=== PATIENT | male | born 1940 | race Caucasian/White ===

== ENCOUNTER 2016-12-18 05:32 | Inpatient (IN) | payer MEDICARE ==
--- NOTE | 2016-12-17 08:37 | HP ---
DATE OF CLINIC: 12/12/16 ERUM CARRERA : 1940 PLANNED PROCEDURE: Left Total Shoulder Arthroplasty vs. Reverse Shoulder Arthroplasty and Biceps Tenodesis DATE OF SURGERY: December 18, 2016 SURGEON: Bennett Palomo M.D. HISTORY OF PRESENT ILLNESS Erum Carrera is a 76 year old male. * Medication list reviewed with patient allergy list reviewed with patient. * Has not tried NSAIDS * Has not tried Physical Therapy * Has not tried Injections The patient is a 76-year-old male who is RHD who is an established patient of the practice who has a PMH for hyperglycemia, coronary artery disease, and systolic CHF who I am evaluating for his left shoulder osteoarthritis who recently had a CTA and would like to move forward with surgical planning. The patient has tried aa steroid injection and he had little to no improvement on this left side. He would like to discuss with me opportunities including surgery and a left shoulder replacement. The patient is well-known to Dr. Johnson and an established patient of the practice. The patient plans on stopping his plavix 5 days prior to his surgery. Due to his allergies or sensitivies, we will plan on using Dilaudid for pain control post-op (oxycodone sensitivity) and Clinda for antitbiotics (PCN produces hives). He did have a complication after his right shoulder surgery. The patient had a right shoulder replacement in [place] by a [facility] doctor. He describes having a heart attack after this surgery. He had an angioplasty on the 15 of October and thinks that everything is ok to move ahead with surgery. I have not spoken to his cardiology and do not have these angioplasty results. He states that he is having increased pain of the left shoulder. He rates his left shoulder pain as probably a 6/10. He states that he has stiffness and limited motion on this side and would like to discuss possible options with me. He is currently on Plavix and he plans to stop taking it prior to the surgery. He has had a coronary artery stenting. He states that his right shoulder arthroplasty was quite prolonged and he actually had a cardiac event requiring catheterization shortly thereafter. After discussion and review of treatment plans, both nonoperative and surgical, he has elected to proceed with surgery and presents today preoperatively. PMH: THe patient had right shoulder surgery by Dr. Cosme, an orthopedic surgeon in [place], performed an arthroscopic right shoulder rotator cuff repair on 01/19/2014. Unfortunately, within five months, the patient had failure of this and persistent pain. He opted to proceed with a right reverse shoulder arthroplasty. This right shoulder reverse shoulder arthroplasty was performed on 06/24/2014. In reviewing the operative note, the patient had an Exactech Equinoxe implant. CURRENT MEDICATION * Allopurinol 300 MG Tablet 1 once a day 0 days, 0 refills * Atorvastatin Calcium 40 MG Tablet 1 once a day 0 days, 0 refills * Clopidogrel Bisulfate 75 MG Tablet 1 once a day 0 days, 0 refills * Folic Acid 1 MG Tablet once a day 0 days, 0 refills * Furosemide 40 MG Tablet once a day 0 days, 0 refills * HM Naproxen Sodium 220 MG Capsule 1 once a day 0 days, 0 refills * Isosorbide Mononitrate ER 120 MG Tablet Extended Release 24 Hour once a day 0 days, 0 refills * Losartan Potassium 25 MG Tablet 1 once a day 0 days, 0 refills * Metoprolol Tartrate 100 MG Tablet 1 twice a day 0 days, 0 refills * NitroQuick 0.4 mg Tablet as needed 0 days, 0 refills * Omeprazole 20 MG Capsule Delayed Release 1 once a day 0 days, 0 refills * Potassium Citrate ER 10 MEQ (1080 MG) Tablet Extended Release three times a day 0 days, 0 refills PAST MEDICAL/SURGICAL HISTORY Reported: Medical: Cardiac problems CAD requiring multiple angioplasties and stent placements. Cholesterol problems. Arthritis, cancer skin, Reported numbness, Reported tingling, cardiac history 7 stents, history of Arthritis, Depression, Gout, Hypertension, Vertigo, and Asthma. Surgical / Procedural: Surgical / procedural history Back sx 2005 disc Heart [id number] 5 stents, replacement of a shoulder joint Right shoulder 2013, of a knee Right knee replaced 05/08/10 by , Cardiac surgery 7 stents-most recent one was done 10/2015, and Back Surgery 2004. Total Right Knee Replacement 05/08/[address] johnson. SOCIAL HISTORY Behavioral: Caffeine use. Not a current smoker and not chewing tobacco. Quit smoking. Smoking status: Former smoker. Alcohol: No consumption of alcohol and not using alcohol. Drug Use: Not using drugs. Work: Occupation Back [employer]. ALLERGIES * Oxycodone * Penicillins Reaction: Skin Rashes/Hives FAMILY HISTORY Father ill Heart disease,hbp Mother ill cancer, hbp, heart disease REVIEW OF SYSTEMS Systemic: No fever and no recent weight change. Cardiovascular: No chest pain or discomfort and no palpitations. Pulmonary: No cough and no wheezing. Gastrointestinal: No nausea, no vomiting, no abdominal pain, and no diarrhea. Hematologic: Easy bleeding (no blood clots, hx of plavix use). Neurological: No motor disturbances and no sensory disturbances. Skin: No skin lesions and no rash. PHYSICAL FINDINGS * Vitals taken 12/12/2016 02:06 pm BP-Sitting R 156/94 mmHg 100 - 120/60 - 80 BP Cuff Size Regular Pulse Rate-Sitting 70 bpm 50 - 100 Pulse Rhythm Regular Temp-Oral 96.7 F 96 - 101 Height 66.5 in 64 - 74 Weight 243 lbs 121 - 205 Body Mass Index 38.6 kg/m2 Body Surface Area 2.18 m2 Pain Level 0 General Appearance: * Well developed. * In no acute distress. Eyes: General/bilateral: Extraocular Movements: * Normal. Lungs: * Clear to auscultation. * No wheezing was heard. * No rales/crackles were heard. Cardiovascular: Heart Rate And Rhythm: * Heart rate was normal. * Heart rhythm regular. Abdomen: Palpation: * Abdominal non-tender. Neurological: * Oriented to time, place, and person. I examined the patient's right and left shoulders. His right shoulder incision is well-healed. He has had a previous well-healed right antecubital fossa distal biceps repair incision and he has chronic right pinky numbness. PHYSICAL FINDINGS RIGHT EXTREMITY Shoulder General Appearance: The patient has an anterior deltopectoral incision and well-healed arthroscopic incision. He has no bruising, no swelling, no gross deformity. Patient describes non-specific pain when turning the car wheel with the right hand AROM Forward Flexion: 120 degrees ABD: 80 degrees IR: Highest posterior anatomy reached with thumb: Greater troch Painful Arc of motion: Not painful on examination today PROM Forward Flexion: 130 degrees ABD: 100 degrees ER (0): 30 degrees Strength (0-5/5) Deltoid: 5/5 Triceps: 5/5 Biceps: 5/5 EPL,Finger Flexors,Finger Extensors,Wrist Flexors, Wrist Extensors,Intrinsics,Adapted Physical Education Aide: 5/5 Other No signs of instability present Atrophy/Asymmetry: Normal Medial Scapular Tenderness: Negative Trapezius Pain: Negative Vascular Exam Radial Pulse: 2+ Sensation Gross sensation to light touch in the distribution of Median, Ulnar and Radial nerves present. Decreased sensation to light touch on the right pinky finger. PHYSICAL FINDINGS LEFT EXTREMITY Shoulder General Appearance: no scars, no bruising, no swelling, no gross deformity AROM Forward Flexion: 140 degrees (crepitus and painful for the patient) ABD: 110 degrees IR: Highest posterior anatomy reached with thumb: Greater troch Painful Arc of motion: painful active and passive motion of the left shoulder PROM Forward Flexion: 150 degrees ABD: 110 degrees ER (0): 10 degrees Strength (0-5/5) Deltoid: 5/5 Triceps: 5/5 Biceps: 5/5 EPL,Finger Flexors,Finger Extensors,Wrist Flexors, Wrist Extensors,Intrinsics,Adapted Physical Education Aide: 5/5 Rotator cuff Supraspinatus: 5/5 (negative empty can test) Infraspinatus: 5/5 (no pain with resisted external rotation) Subscapularis: 5/5 (negative belly press test) Rotator Cuff Exam Neer's Sign: POSITIVE Hawkin's Sign: POSITIVE Superior Escape: Negative Biceps Exam Bicipital Groove Tenderness: POSITIVE Muscle Deformity (Toni): Not present AC Exam AC Tenderness: Not tender AC Deformity: Negative Instability Generalized Laxity(thumb to forearm,hyperextension of elbows and knees, hypermobility of multiple joints): Not present, no signs of instability present Other Medial Scapular Tenderness: Negative Trapezius Pain: Negative Vascular Exam Radial Pulse: 2+ Sensation Gross sensation to light touch in the distribution of Median, Ulnar, Axillary, and Radial nerves present IMAGING CXR--Pending 10.05.2016--CTA of the left shoulder: demonstrates severe osteoarthritis of the left shoulder. The patient has an intact rotator cuff. The patient had central and some posterior glenoid wear but I think a pegged component could fit without a problem. I think an anatomic TSA would be possible but a RSA would be available for backup. X-rays of the patient's right shoulder, performed on 08/13/2016, demonstrate a cemented humeral stem and glenosphere. On the AP view, the patient has no signs of glenoid notching. We did not actually have any previous x-rays. On the axillary view, it does appear that the patient's central, or more proximal screw, extends one to two centimeters past the edge of the bone, however this does not appear to be causing any difficulty or problem. The glenosphere is somewhat antiverted. No other signs of loosening, failure or any other abnormalities are appreciated on these x-rays. Three views of the right hand were also performed. These x-rays demonstrate some DIP and IP osteoarthritis with subchondral sclerosis of the first CMC joint, consistent with basal joint osteoarthritis. Three view of the left shoulder demonstrate primary osteoarthritis. There is severe wear, especially on the inferior aspect of the glenoid. On the axillary view, the patient has concentric wear. I do not see any signs of a high-riding humeral head. Most likely the patient's rotator cuff is intact. We did not have any advanced imaging which would help us with this. ASSESSMENT Bennett Palomo MD made the following assessments * Osteoarthritis of shoulder -left * Complete tear of right rotator cuff tendon --s/p right shoulder RSA (Exactech) in 2013 PLAN Bennett Palomo MD ordered the following therapy * Shoulder arthroplasty -left, TSA vs. RSA, biceps tenodesis THERAPY * Patient fall risk screen negative. * Patient eligible for fall risk assessment. * Patient received fall risk assessment. SURGICAL CONSENT We have discussed surgical options including left total shoulder arthroplasty vs. reverse shoulder arthroplasty with biceps tenodesis and nonoperative management. I told the patient that I cannot guarantee that he could have a different medical issue post-op. He states that he understands this and would like to move ahead with surgery. Due to his plavix use, he is at higher risk for a wound problem, hematoma and infection. I told him that I may need to place a drain if necessary. I told him that a RSA would only but used if I was concerned for the integrity of his rotator cuff. We then spent some time discussing the pros and cons of surgery and I attempted to answer his questions about the surgery and the post-op recovery. I then reviewed with the patient my patient education powerpoint presentation total shoulder replacement refers to the resurfacing of the ball (humeral) side of the joint with a metal prosthesis that has a cylindrical joint surface and a stem used to fix it on the inside of the arm bone (humerus) and a plastic socket fixed to the glenoid part of the shoulder blade (scapula). This procedure is the standard approach to the management of arthritis of the shoulder joint. Because it resurfaces both the ball and the socket sides of the joint, it provides the most assured approach to restoring comfort and function to the shoulder. We can perform this shoulder surgery by operating through the delto-pectoral interval through an incision in the anterior aspect of the shoulder. Commonly, we performed a tenodesis of the long head of the biceps and a release (and repair) of the subscapularis tendon from the humerus. The long head of the biceps is sutured to the pectoral major tendon, and the subscapularis tendon is repaired back tot he bone at the conclusion of the surgery. After a release of the subscapularis, the capsule, which is usually tight and contracted, limiting motion of the shoulder, is released. The arthritic part of the ball is removed with care to preserve the rotator cuff. The bone spurs are removed from around the humerus to avoid unwanted contact with the scapula. We then shape the bone of the socket area (glenoid) to receive the polyethylene glenoid prosthesis. This is fixed in place with a self-locking mechanism coupled with a small amount of bone cement (polymethylmethacrylate). The stem of the metal humeral component is then press-fit into the canal inside the humerus using the patient's own bone. The subscapularis is then repaired to the humerus using sutures. The [id number] of the shoulder is then evaluated and stability is then examined. The incision is then washed and closed. Pendulum exercises will be taught to the patient the day after surgery. Patients are usually discharged from the hospital on the second day after surgery, as long as they are comfortable on oral pain medication have met our goals for their [id number], and are able to walk with good balance and can care for their daily needs. In the past, there has been a major concern about wear of the glenoid socket component or about its loosening. While these concerns remain to a degree, it appears that our current methods of socket preparation and current prosthesis designs have substantially reduced these risks. Shoulder replacement surgery usually results in a substantial improvement in the comfort and function of an arthritic shoulder, but the results cannot be expected to match the condition of a normal joint. The patient was counseled in detail regarding the diagnosis, treatment options available, prognosis of each treatment option and the potential risks and complications. The risks of surgery include, but are not limited to, anesthetic , neurovascular complications, pulmonary embolism, deep vein thrombosis, wound dehiscence, failure of any or all of the discussed procedures, infection of the joint or surrounding soft tissue, need for revision surgery, chronic pain, limitations in activities of daily living, inability to return to work, and loss of normal range of motion or functional use of the extremity. There is the possibility of failure over time that may require additional operative or nonoperative treatment. The patient acknowledged that there are a number of perioperative risks not mentioned here and would still like to proceed. The patient is aware of and understands these risks, and wishes to proceed with the proposed surgical procedure and other procedures as indicated at the time of surgery. The patient has seen his cognos report developer and PCP for a preoperative medical risk assessment. The preoperative instructions were reviewed with the patient and all questions were answered. CARE TEAM Matt Lenz MD Internal Medicine Emmanuel Talbot MD Cardiovascular Disease
[2016-12-18] MEDS ORDERED: CLINDAMYCIN 600 MG PREMIX 50 ML IV PRN (05:45)
[2016-12-18] MEDS ORDERED: LACTATED RINGERS 1,000 ML ONE (05:52)
[2016-12-18] MEDS ORDERED: IV START KIT ONE (05:52)
[2016-12-18] MEDS ORDERED: LIDOCAINE 2% (PRES FREE) 5 ML VIAL ONE (06:20)
[2016-12-18] MEDS ORDERED: ROPIVACAINE 0.5% 30 ML VIAL ONE (06:20)
[2016-12-18] MEDS ORDERED: PROPOFOL 20 ML IV ONE (06:20)
[2016-12-18] MEDS ORDERED: DEXAMETHASONE SOD PHOS 4 MG/1 ML VIAL ONE (06:20)
[2016-12-18] MEDS ORDERED: ROCURONIUM BROMIDE 10 MG/ML DOSE IV ONE (06:20)
[2016-12-18] MEDS ORDERED: ONDANSETRON 4 MG/2ML 2 ML VIAL ONE (06:20)
[2016-12-18] MEDS ORDERED: MIDAZOLAM HCL 5 MG/5 ML VIAL ONE (06:20)
[2016-12-18] MEDS ORDERED: FENTANYL 5 ML ONE (06:20)
[2016-12-18] MEDS ORDERED: NERVE BLOCK PROCEDURAL TRAY 1 EACH ONE (06:30)
[2016-12-18] MEDS ORDERED: CLINDAMYCIN 600 MG PREMIX 50 ML IV ONE (06:51)
[2016-12-18] MEDS ORDERED: EPINEPHRINE 1 MG/ML 1ML AMP ONE (07:01)
[2016-12-18] MEDS ORDERED: SODIUM CHLORIDE 0.9% 100 ML ONE (07:02)
[2016-12-18] MEDS ORDERED: METHYLENE BLUE 1% 1ML VIAL ONE (07:02)
[2016-12-18] MEDS ORDERED: ONDANSETRON 4 MG/2ML 2 ML VIAL IV PRN ×2 (08:58→12:25)
[2016-12-18] MEDS ORDERED: ON-Q PUMP/ROPIVACAINE 0.2% 400 ML in PREMIX BAG 1 EACH NB PRN (08:58)
[2016-12-18] MEDS ORDERED: HYDROMORPHONE HCL 1 MG/ML SYRINGE IV PRN (08:58)
[2016-12-18] MEDS ORDERED: PROMETHAZINE HCL 25 MG/ML VIAL IM PRN (08:58)
[2016-12-18] MEDS ORDERED: FENTANYL 100 MCG/2 ML VIAL IV PRN (08:58)
[2016-12-18] MEDS ORDERED: LACTATED RINGERS 1,000 ML IV SCH ×2 (09:00→12:25)
[2016-12-18] MEDS ORDERED: FENTANYL 100 MCG/2 ML VIAL ONE (10:22)
--- NOTE | 2016-12-18 11:18 | PCMBPN ---
Brief Post Op Note: Date of Procedure: 12/18/16 Preoperative Diagnosis: 1. left shoulder osteoarthritis and biceps tendonitis Postoperative Diagnosis: 1. [Same] Procedure: left total shoulder arthroplasty and biceps tenodesis Surgeon: Bennett Palomo MD Assist: George Ely PA-C, CFA Anesthesia: GETA, left intrascalene nerve block and catheter for post-op pain relief Findings: as expected, pt had an intact rotator cuff. DJO [place] TSA implanted. Size 10mm humeral stem. Cemented size 50 glenoid and a std neck and neutral head (50mm) Condition: extubated, stable vitals, transferred to pacu Complications: None IV Fluids: 1200 mLs of LR Urine Output: 150 mLs Estimated Blood Loss: 250mLs Tourniquet Time: [N/A] Specimens: [N/A] Implants: DJO Implants Drains: [N/A] Plan: NWB on the LUE. SLing at all times. Wainwright for pain control and morphine. Clinda for 24 hours post-op. Will resume Plavix on POD#2
--- NOTE | 2016-12-18 11:22 | RAD ---
SHOULDER-LEFT 1 VIEW COMPARISON: Left shoulder 4 views, 08/13/2016 HISTORY: Intraoperative radiograph and fluoroscopy for left shoulder arthroplasty. Fluoroscopy time 8.3 seconds FINDINGS: Views: Left shoulder AP proximal and distal. Bones: Normal Joints: Satisfactory position of the left total shoulder arthroplasty. Soft tissues: Normal IMPRESSION: Satisfactory position of the left total shoulder arthroplasty.
[2016-12-18] MEDS ORDERED: METOPROLOL TARTRATE 1 MG/ML 5ML VIAL ONE (11:25)
[2016-12-18] MEDS ORDERED: ON-Q PUMP/ROPIVACAINE 0.2% 450 ML ONE (11:38)
[2016-12-18] MEDS ORDERED: BISACODYL 10 MG SUP PR PRN (12:25)
[2016-12-18] MEDS ORDERED: TRAMADOL HCL 50 MG TABLET PO PRN (12:25)
[2016-12-18] MEDS ORDERED: ACETAMINOPHEN 500 MG TABLET PO PRN (12:25)
[2016-12-18] MEDS ORDERED: DIPHENHYDRAMINE HCL 50 MG/1 ML VIAL IV PRN (12:25)
[2016-12-18] MEDS ORDERED: MORPHINE SULFATE 2 MG/ML SYRINGE IV PRN (12:25)
[2016-12-18] MEDS ORDERED: MAGNESIUM HYDROXIDE 30 ML UDCUP PO PRN (12:25)
[2016-12-18] MEDS ORDERED: MORPHINE SULFATE 4 MG/ML SYRINGE IV PRN (12:33)
--- NOTE | 2016-12-18 13:17 | RAD ---
SHOULDER-LEFT 2 OR MORE VIEWS 12/18/2016 at 12:13 COMPARISON: Left shoulder 2 views, 12/18/2016 at 08:22 HISTORY: Immediately postop left shoulder arthroplasty. FINDINGS: Views: Left shoulder AP and internal rotation Bones: Normal Joints: Satisfactory positioning of the left shoulder total arthroplasty. Soft tissues: Normal IMPRESSION: Satisfactory appearance of the left shoulder total arthroplasty.
[2016-12-18] MEDS ORDERED: PUMP TUBING ONE (14:27)
[2016-12-18] MEDS: CLINDAMYCIN 600 MG PREMIX 600 MG in Premix (D5W) 50 ml 1 EACH IV SCH (16:04)
[2016-12-18] MEDS ORDERED: NITROGLYCERIN 0.4 MG/TAB.SUBL BOT SL PRN (18:12)
--- NOTE | 2016-12-18 19:15 | CONS ---
ERUM CARRERA [id number] : 1940 DATE OF ADMISSION: December 18, 2016 DATE OF CONSULTATION: December 18, 2016 CONSULTATION REQUESTED BY: Bennett Palomo M.D. REASON FOR CONSULTATION: Perioperative medical management. PRIMARY CARE PROVIDER: Matt Lenz M.D. CHIEF COMPLAINT: Left shoulder pain. HISTORY ON ADMISSION: Mr. Carrera is a 76-year-old with longstanding osteoarthritis. He had a previous right shoulder arthoplasty at [facility] in 2013 and suffered a myocardial infarction at the time of that surgery. He has recovered from that and had cardiac clearance prior to this surgery. Consulted with Dr. Palomo and presented today for planned left total shoulder arthroplasty. He had surgery with general endotracheal anesthesia. An interscalene nerve block and catheter were left in place for postoperative pain management. Estimated blood loss was 250 mL. Fluids given during surgery 1200 mL. He is seen on the medical/surgical floor on the evening following surgery. He is asleep but rouses easily. Reports dyspnea which is at his chronic baseline. No significant pain, no nausea, itching or chest pain. PREOPERATIVE REVIEW OF SYSTEMS: No recent upper respiratory symptoms, chronic dyspnea. No recent chest pain or palpitations. No gastrointestinal symptoms, no genitourinary symptoms. PAST MEDICAL HISTORY: 1. Osteoarthritis. 2. Coronary artery disease. He has had at least one myocardial infarction and two coronary catheterizations with a total of seven stents placed. 3. Chronic systolic heart failure followed by Dr. Talbot. 4. Hypertension. 5. Dyslipidemia. 6. Gout. 7. Gastroesophageal reflux disease. 8. Obstructive sleep apnea with use of CPAP. 9. Obesity with a body mass index of 39.0 and presumed obesity hypoventilation syndrome contributing to obstructive sleep apnea. PAST SURGICAL HISTORY: 1. Back surgery in 2004. 2. Right total knee arthroplasty by Dr. Johnson in 2009. 3. Right total shoulder arthroplasty at [facility] in 2013. 4. Coronary catheterizations with a total of seven stents. 5. Left total shoulder surgery today. ALLERGIES: 1. HE REPORTS HISTORY OF HIVES FROM PENICILLIN. 2. HE DOES NOT REPORT TROUBLE WITH OXYCODONE BUT THAT IS NOTED IN HIS CHART. MEDICATIONS PRIOR TO ADMISSION: 1. Allopurinol 300 mg orally daily. 2. Atorvastatin 80 mg orally nightly. 3. Clopidogrel 75 mg orally daily. He did hold that for a week preceding surgery. 4. Zetia 10 mg orally nightly. 5. Folic acid 1 mg orally nightly. 6. Furosemide 80 mg in the morning and 40 mg at noon. 7. Potassium chloride 20 mEq in the morning and 10 mEq at noon. 8. Omeprazole 20 mg orally daily. 9. Nitroglycerin 0.4 mg sublingual every five minutes as needed. 10. Metoprolol tartrate 100 mg orally twice daily. 11. Isosorbide mononitrate 120 mg orally each morning. HABITS: He is a former smoker of about 20 years but quit in 1974. No alcohol or drug use. SOCIAL HISTORY: He is a retired interstate bus driver. Lives in [place] with his . He is a [employer]. FAMILY HISTORY: Positive for hypertension and heart disease in his father, mother and brother. PHYSICAL EXAMINATION: GENERAL: This is a pleasant, obese, elderly gentleman in no acute distress. VITAL SIGNS: Temperature is 97.3 degrees Fahrenheit, pulse 101, blood pressure 154/76, respiratory rate 18, oxygen saturation 98% on 2 L of oxygen by nasal cannula. HEENT: Pupils are reactive. Left is a little oblong from cataract surgery. Extraocular muscles are intact. Oropharynx is moist. Upper denture plate in place. LUNGS: Decreased breath sounds particularly at the left base but no wheezes or rhonchi. HEART: Regular, no murmur appreciated. ABDOMEN: Obese, soft, nontender. Normal bowel tones. No organomegaly. EXTREMITIES: He does have trace edema in the ankles and feet bilaterally. Moderate dorsalis pedis pulses. No cyanosis or clubbing. Left shoulder is immobilized and in a cooling blanket. NEUROLOGIC: He is alert and oriented with no focal deficits. PREOPERATIVE LABORATORY STUDIES: Done on December 10, 2016, white blood cell count 8.3, hemoglobin and hematocrit 13.2 and 37.9, platelets 235. INR 0.98, PTT 24.7. Sodium 141, potassium 4.3, chloride 104, CO2 25, BUN 28, creatinine 1.4, glucose 132. He may have some chronic kidney disease given that creatinine and BUN. Urinalysis was normal. Nasal screening swab was positive for methicillin sensitive, negative for methicillin resistant Staphylococcus aureus. ASSESSMENT: Mr. Carrera is a 76-year-old status post left total shoulder reverse arthroplasty. He has underlying coronary artery disease, chronic systolic congestive heart failure, hypertension, dyslipidemia, gout, gastroesophageal reflux disease, and obstructive sleep apnea with use of CPAP. RECOMMENDATIONS: 1. Postoperative care per orthopedics. 2. Resume clopidogrel on the morning following surgery as well as daily aspirin 325 mg and mechanical means for venous thromboembolism prophylaxis. 3. Resume home medications especially metoprolol tonight. 4. Replace omeprazole with pantoprazole. 5. Do not administer routine fluids overnight so as not to put him into acute heart failure. 6. Home CPAP use should be continued. Thank you, Dr. Palomo, for this consultation. The hospitalist service will follow.
[2016-12-18] MEDS: ATORVASTATIN CALCIUM 40 MG TABLET PO SCH (21:30)
[2016-12-18] MEDS: ALLOPURINOL 300 MG TABLET PO SCH (21:30)
[2016-12-18] MEDS: EZETIMIBE 10 MG TABLET PO SCH (21:30)
[2016-12-18] MEDS: METOPROLOL TARTRATE 100 MG TABLET PO SCH (21:30)
[2016-12-18] MEDS: PANTOPRAZOLE 40 MG TABLET DR PO SCH (21:31)
[2016-12-18] MEDS: DOCUSATE SODIUM 100 MG CAPSULE PO SCH (21:31)
[2016-12-18] MEDS: FOLIC ACID 1 MG TABLET PO SCH (21:32)
[2016-12-19] MEDS: CLINDAMYCIN 600 MG PREMIX 600 MG in Premix (D5W) 50 ml 1 EACH IV SCH (00:30)
[2016-12-19] MEDS ORDERED: LACTATED RINGERS 0 ML ONE (06:00)
[2016-12-19] MEDS ORDERED: IV START KIT ONE (06:01)
[2016-12-19 06:54] LABS: HEMATOCRIT 32.2 % (32.0-52.0); HEMOGLOBIN 11.1 gm/l (14.0-18.0); MEAN CELL VOLUME 89.9 fl (80.0-94.0); MEAN CORPUSCULAR HGB CONC 34.5 g/dl (33.0-37.0); RED CELL DISTRIBUTION WIDTH 13.5 % (11.5-14.5)
--- NOTE | 2016-12-19 08:14 | PDOC43 ---
- Subjective Subjective: Reports Pain Tolerable (Pt doing ok at this time. Decker still in place. No chest pain.), Denies Chest Pain, Denies Shortness of Breath, Denies Nausea, Denies Vomiting, Denies Fever - Objective Vital Signs Temperature 98.0 F 12/19/16 08:02 Pulse Rate 74 12/19/16 08:02 Respiratory Rate 18 12/19/16 08:02 Blood Pressure 134/74 12/19/16 08:02 O2 Saturation by Pulse Oximetry 96 12/19/16 08:02 Oxygen Delivery Method Nasal Cannula Oxygen Flow Rate 3 Laboratory 12/19/16 06:35 12/19/16 06:35 RBC 3.58 L Active Medication Orders Category Date Time Status Acetaminophen [Tylenol] Med 12/18/16 12:25 Active 500 - 1,000 mg PO Q6H PRN Allopurinol [Zyloprim] Med 12/18/16 21:00 Active 300 mg PO BEDTIME Aspirin (Enteric Coated) [Ecotrin] Med 12/19/16 09:00 Active 325 mg PO DAILY Atorvastatin Calcium [Lipitor] Med 12/18/16 21:00 Active 80 mg PO BEDTIME Bisacodyl [Dulcolax] Med 12/18/16 12:25 Active 10 mg ID DAILY PRN Clopidogrel Bisulfate [Plavix] Med 12/19/16 09:00 Active 75 mg PO DAILY Diphenhydramine HCl [Benadryl] Med 12/18/16 12:25 Active 25 - 50 mg IV Q6H PRN Docusate Sodium [Colace] Med 12/18/16 21:00 Active 100 mg PO BID Ezetimibe [Zetia] Med 12/18/16 21:00 Active 10 mg PO BEDTIME Folic Acid Med 12/18/16 21:00 Active 1 mg PO BEDTIME Furosemide [Lasix] Med 12/19/16 12:00 Active 40 mg PO DAILY@1200 Furosemide [Lasix] Med 12/19/16 09:00 Active 80 mg PO DAILY Hydrocodone Bit/Acetaminophen [[place] 7.5/325] Med 12/18/16 12:25 Active 0.5 - 2 tab PO Q4H PRN Isosorbide Mononitrate [Imdur] Med 12/19/16 09:00 Active 120 mg PO QAM Magnesium Hydroxide [Milk of Magnesia] Med 12/18/16 12:25 Active 30 ml PO DAILY PRN Metoprolol Tartrate [Lopressor] Med 12/18/16 21:00 Active 100 mg PO BID Morphine Sulfate Med 12/18/16 12:25 Active 2 - 4 mg IV Q4H PRN Morphine Sulfate Med 12/18/16 12:33 Active 2 - 4 mg IV Q4H PRN Nitroglycerin [Nitrostat] Med 12/18/16 18:12 Active 0.4 mg SL Q5M PRN On-Q Pump/Ropivacaine 0.2% 400 ml Med 12/18/16 08:58 Active Premix Bag [Premix Fluid] 1 each NB Q50H Ondansetron 4 mg/2ml Vial [Zofran] Med 12/18/16 12:25 Active 4 - 6 mg IV Q6H PRN Pantoprazole Sodium [Protonix] Med 12/18/16 18:30 Active 40 mg PO DAILY Potassium Chloride [K-Dur] Med 12/19/16 12:00 Active 10 meq PO DAILY@1200 Potassium Chloride [K-Dur] Med 12/19/16 09:00 Active 20 meq PO QAM Sodium Chloride 0.9% Flush [Normal Saline 10ml Flush] Med 12/18/16 12:25 Active 10 - 50 ml IV PRN PRN Sodium Chloride 0.9% Flush [Normal Saline 10ml Flush] Med 12/18/16 17:00 Active 10 ml IV Q8HR Tramadol HCl [Ultram] Med 12/18/16 12:25 Active 50 mg PO TID PRN Intake and Output 12/17/16 12/18/16 12/19/16 23:59 23:59 23:59 Intake Total 2633 2032 Output Total 750 950 Balance 1883 1082 General: Afebrile - Left Upper Extremity Incision: Dressing Clean/Dry/Intact Motor: Extensor Pollicis Longus: 4/5, Finger Flexors: 4/5, Finger Extensors: 4/5 , Wrist Flexors: 4/5, Wrist Extensors: 4/5, Intrinsics: 4/5 Gross Sensation to Light Touch: Present: Median Nerve, Ulnar Nerve, Radial Nerve Capillary Refill: < 3 Seconds - Problems (1) Primary osteoarthritis, left shoulder Status: Acute - Disposition POD#1 s/p left TSA Appreciate medicine following patient with me Would recommend restarting Plavix on POD#2. Currently on ASA for DVT prophylaxis. Decker cather to be removed today NWB on the LUE. Clinda x 24 hours post-op PT and OT to work with the patient today. D/C depends on pain control. Will start weaning nerve block later today.
[2016-12-19] MEDS: CLOPIDOGREL BISULFATE 75 MG TABLET PO SCH (08:27)
[2016-12-19] MEDS: ISOSORBIDE MONONITRATE 60 MG TAB.SR PO SCH (08:27)
[2016-12-19] MEDS: PANTOPRAZOLE 40 MG TABLET DR PO SCH (08:28)
[2016-12-19] MEDS: DOCUSATE SODIUM 100 MG CAPSULE PO SCH ×2 (08:28→20:24)
[2016-12-19] MEDS: POTASSIUM CHLORIDE 20 MEQ TAB.PRT.SR PO SCH (08:28)
[2016-12-19] MEDS: METOPROLOL TARTRATE 100 MG TABLET PO SCH ×2 (08:28→20:16)
[2016-12-19] MEDS: HYDROcodone/ACETAM 7.5/325MG TABLET PO PRN ×3 (08:28→16:38)
[2016-12-19] MEDS: FUROSEMIDE 40 MG TABLET PO SCH (08:28)
[2016-12-19 08:37] LABS: CALCIUM 8.9 mg/dL (8.6-10.3)
[2016-12-19] MEDS ORDERED: ASPIRIN (ENTERIC COATED) 325 MG TABLET.EC PO SCH (09:00)
[2016-12-19 09:48] VITALS: BMI 38.8
--- NOTE | 2016-12-19 11:42 | PDOC43 ---
- Subjective Chief Complaint: Left shoulder pain Subjective: Reports Pain Tolerable, Reports Tolerating Diet Well, Reports Chest Pain (breifly this am similar to usual angina pattern and resolved without NTG) , Denies Shortness of Breath, Denies Fever - Objective Vital Signs Temperature 98.0 F 12/19/16 08:02 Pulse Rate 74 12/19/16 08:02 Respiratory Rate 18 12/19/16 08:02 Blood Pressure 134/74 12/19/16 08:02 O2 Saturation by Pulse Oximetry 96 12/19/16 08:02 Oxygen Delivery Method Nasal Cannula Oxygen Flow Rate 3 Intake and Output 12/18/16 12/19/16 12/20/16 06:59 06:59 06:59 Intake Total 4665 Output Total 1700 Balance 2965 General: Alert, Oriented x3, Cooperative, No Acute Distress HEENT: Mucous membr. moist/pink Lungs: Clear to Auscultation Bilaterally Cardiovascular: Regular Rate and Rhythm Abdomen: Soft, Normal Bowel Sounds, Non-Distended, No Tenderness Extremities: Edema (trace) Wound: Dressing Clean/Dry/Intact Laboratory 12/19/16 06:35 12/19/16 06:35 12/19/16 06:35 RBC 3.58 L Current Medications: Current meds reviewed in EMR. - Problems: Assessment/Plan (1) Status post total shoulder arthroplasty Qualifiers: Laterality: left Qualifier Code: (Z96.612) Presence of left artificial shoulder joint Status: Acute Assessment/Plan: performed on 12/18 without complications-Per Dr Palomo (2) CAD (coronary artery disease) Qualifiers: Coronary Disease-Associated Artery/Lesion type: [place] artery [place] vs. transplanted heart: [place] heart Associated angina: with stable angina Qualifier Code: (I25.118) Atherosclerotic heart disease of [place] coronary artery with other forms of angina pectoris Status: Chronic Assessment/Plan: On Metoprolol, Imdur and PRN NTG appears stable-resumed Plavix today (3) CHF (congestive heart failure) Qualifiers: Congestive heart failure type: systolic Congestive heart failure chronicity: chronic Qualifier Code: (I50.22) Chronic systolic (congestive) heart failure Status: Chronic Assessment/Plan: appears stable-consider low dose RAUL-I (4) ENDER (obstructive sleep apnea) Status: Chronic Assessment/Plan: with chronic resp failure on home CPAP (5) Obesity, Class II, BMI 35-39.9 Status: Chronic Assessment/Plan: with presumed obesity hypoventilation syndrome-stable (6) GERD (gastroesophageal reflux disease) Qualifiers: Esophagitis presence: esophagitis presence not specified Qualifier Code : (K21.9) Gastro-esophageal reflux disease without esophagitis Status: Chronic Assessment/Plan: stable on PPI (7) Gout Qualifiers: Gout site: unspecified site Gout etiology: unspecified cause Chronicity: chronic Presence of tophus: without tophus Qualifier Code: ( M1A.9XX0) Chronic gout, unspecified, without tophus (tophi) Status: Chronic Assessment/Plan: stable (8) HTN (hypertension), benign Status: Chronic Assessment/Plan: stable, may benefit from RAUL-I-will likely defer to sash repairer VTE Prophylaxis: mech measures and Plavix Disposition: this PM or in am depending on progress with PT/OT
[2016-12-19] MEDS ORDERED: POTASSIUM CHLORIDE 10 MEQ TAB.SR PO SCH (12:00)
[2016-12-19] MEDS ORDERED: FUROSEMIDE 40 MG TABLET PO SCH (12:00)
[2016-12-19] MEDS: ALLOPURINOL 300 MG TABLET PO SCH (20:24)
[2016-12-19] MEDS: ATORVASTATIN CALCIUM 40 MG TABLET PO SCH (20:24)
[2016-12-19] MEDS: FOLIC ACID 1 MG TABLET PO SCH (20:24)
[2016-12-19] MEDS: EZETIMIBE 10 MG TABLET PO SCH (20:24)
[2016-12-20] MEDS: HYDROcodone/ACETAM 7.5/325MG TABLET PO PRN ×2 (02:24→08:18)
[2016-12-20 07:30] VITALS: BP 131/58
--- NOTE | 2016-12-20 07:38 | PDOC43 ---
- Subjective Chief Complaint: Left shoulder pain Subjective: Reports Pain Tolerable, Reports Adequate Oral Intake, Denies Chest Pain, Denies Fever - Objective Vital Signs Temperature 98.2 F 12/20/16 07:28 Pulse Rate 94 12/20/16 07:28 Respiratory Rate 17 12/20/16 07:28 Blood Pressure 131/58 12/20/16 07:28 O2 Saturation by Pulse Oximetry 95 12/20/16 07:28 Oxygen Delivery Method Room Air Oxygen Flow Rate 0 Intake and Output 12/19/16 12/20/16 12/21/16 06:59 06:59 06:59 Intake Total 4665 2420 Output Total 1700 2175 Balance 2965 245 General: Alert, Oriented x3, Cooperative, No Acute Distress HEENT: Mucous membr. moist/pink Lungs: Clear to Auscultation Bilaterally Cardiovascular: Regular Rate and Rhythm Abdomen: Soft, Normal Bowel Sounds, Non-Distended, No Tenderness Extremities: No Edema Wound: Dressing Clean/Dry/Intact Laboratory 12/19/16 06:35 12/19/16 06:35 Current Medications: Current meds reviewed in EMR. - Problems: Assessment/Plan (1) Status post total shoulder arthroplasty Qualifiers: Laterality: left Qualifier Code: (Z96.612) Presence of left artificial shoulder joint Status: Acute Assessment/Plan: performed on 12/18 without complications-Per Dr Palomo (2) CAD (coronary artery disease) Qualifiers: Coronary Disease-Associated Artery/Lesion type: [place] artery [place] vs. transplanted heart: [place] heart Associated angina: with stable angina Qualifier Code: (I25.118) Atherosclerotic heart disease of [place] coronary artery with other forms of angina pectoris Status: Chronic Assessment/Plan: On Metoprolol, Imdur and PRN NTG appears stable-resumed Plavix on 2/ (3) CHF (congestive heart failure) Qualifiers: Congestive heart failure type: systolic Congestive heart failure chronicity: chronic Qualifier Code: (I50.22) Chronic systolic (congestive) heart failure Status: Chronic Assessment/Plan: appears stable-consider low dose RAUL-I (4) ENDER (obstructive sleep apnea) Status: Chronic Assessment/Plan: with chronic resp failure on home CPAP (5) Obesity, Class II, BMI 35-39.9 Status: Chronic Assessment/Plan: with presumed obesity hypoventilation syndrome-stable (6) GERD (gastroesophageal reflux disease) Qualifiers: Esophagitis presence: esophagitis presence not specified Qualifier Code : (K21.9) Gastro-esophageal reflux disease without esophagitis Status: Chronic Assessment/Plan: stable on PPI (7) Gout Qualifiers: Gout site: unspecified site Gout etiology: unspecified cause Chronicity: chronic Presence of tophus: without tophus Qualifier Code: ( M1A.9XX0) Chronic gout, unspecified, without tophus (tophi) Status: Chronic Assessment/Plan: stable (8) HTN (hypertension), benign Status: Chronic Assessment/Plan: stable, may benefit from RAUL-I-will likely defer to labor relations consultant VTE Prophylaxis: mech measures and Plavix Disposition: today
--- NOTE | 2016-12-20 07:44 | PDOC43 ---
- Subjective Subjective: Reports Pain Tolerable, Denies Chest Pain, Denies Shortness of Breath, Denies Nausea - Objective Vital Signs Temperature 98.2 F 12/20/16 07:28 Pulse Rate 94 12/20/16 07:28 Respiratory Rate 17 12/20/16 07:28 Blood Pressure 131/58 12/20/16 07:28 O2 Saturation by Pulse Oximetry 95 12/20/16 07:28 Oxygen Delivery Method Room Air Oxygen Flow Rate 0 Laboratory 12/19/16 06:35 12/19/16 06:35 Active Medication Orders Category Date Time Status Acetaminophen [Tylenol] Med 12/18/16 12:25 Active 500 - 1,000 mg PO Q6H PRN Allopurinol [Zyloprim] Med 12/18/16 21:00 Active 300 mg PO BEDTIME Atorvastatin Calcium [Lipitor] Med 12/18/16 21:00 Active 80 mg PO BEDTIME Bisacodyl [Dulcolax] Med 12/18/16 12:25 Active 10 mg ID DAILY PRN Clopidogrel Bisulfate [Plavix] Med 12/19/16 09:00 Active 75 mg PO DAILY Diphenhydramine HCl [Benadryl] Med 12/18/16 12:25 Active 25 - 50 mg IV Q6H PRN Docusate Sodium [Colace] Med 12/18/16 21:00 Active 100 mg PO BID Ezetimibe [Zetia] Med 12/18/16 21:00 Active 10 mg PO BEDTIME Folic Acid Med 12/18/16 21:00 Active 1 mg PO BEDTIME Furosemide [Lasix] Med 12/19/16 12:00 Active 40 mg PO DAILY@1200 Furosemide [Lasix] Med 12/19/16 09:00 Active 80 mg PO DAILY Hydrocodone Bit/Acetaminophen [[place] 7.5/325] Med 12/18/16 12:25 Active 0.5 - 2 tab PO Q4H PRN Isosorbide Mononitrate [Imdur] Med 12/19/16 09:00 Active 120 mg PO QAM Magnesium Hydroxide [Milk of Magnesia] Med 12/18/16 12:25 Active 30 ml PO DAILY PRN Metoprolol Tartrate [Lopressor] Med 12/18/16 21:00 Active 100 mg PO BID Morphine Sulfate Med 12/18/16 12:25 Active 2 - 4 mg IV Q4H PRN Morphine Sulfate Med 12/18/16 12:33 Active 2 - 4 mg IV Q4H PRN Nitroglycerin [Nitrostat] Med 12/18/16 18:12 Active 0.4 mg SL Q5M PRN On-Q Pump/Ropivacaine 0.2% 400 ml Med 12/18/16 08:58 Active Premix Bag [Premix Fluid] 1 each NB Q50H Ondansetron 4 mg/2ml Vial [Zofran] Med 12/18/16 12:25 Active 4 - 6 mg IV Q6H PRN Pantoprazole Sodium [Protonix] Med 12/18/16 18:30 Active 40 mg PO DAILY Potassium Chloride [K-Dur] Med 12/19/16 12:00 Active 10 meq PO DAILY@1200 Potassium Chloride [K-Dur] Med 12/19/16 09:00 Active 20 meq PO QAM Sodium Chloride 0.9% Flush [Normal Saline 10ml Flush] Med 12/18/16 12:25 Active 10 - 50 ml IV PRN PRN Sodium Chloride 0.9% Flush [Normal Saline 10ml Flush] Med 12/18/16 17:00 Active 10 ml IV Q8HR Tramadol HCl [Ultram] Med 12/18/16 12:25 Active 50 mg PO TID PRN Intake and Output 12/18/16 12/19/16 12/20/16 23:59 23:59 23:59 Intake Total 2633 3852 600 Output Total 750 2125 1000 Balance 1883 1727 -400 General: No Acute Distress Lungs: Normal Air Movement Abdomen: No Tenderness Psych/Mental Status: Normal Affect Peripheral Pulses: Left Radial: 2+ - Left Upper Extremity Incision: Dressing Clean/Dry/Intact Motor: Extensor Pollicis Longus: 5/5, Finger Flexors: 5/5, Finger Extensors: 5/5 , Wrist Flexors: 5/5, Wrist Extensors: 5/5, Intrinsics: 5/5, Biceps: 5/5, Triceps: 5/5 Gross Sensation to Light Touch: Present: Median Nerve, Ulnar Nerve, Radial Nerve Capillary Refill: < 3 Seconds - Disposition POD#2 s/p left TSA Appreciate medicine following patient with Ortho Patient will take his Plavix for DVT prophylaxis. NWB on the LUE. PT and OT to work with the patient today-- may bend elbow, hand squeezing exercises and passive pendulums Pain is well controlled with with oral meds and pain catheter at 4. Wean pain catheter this am, march D/C by mid morning. If pain continues well controlled with oral pain pills, then may D/C to home. Left shoulder dressing change--[place]-- prior to D/C.
[2016-12-20] MEDS: PANTOPRAZOLE 40 MG TABLET DR PO SCH (08:18)
[2016-12-20] MEDS: METOPROLOL TARTRATE 100 MG TABLET PO SCH (08:18)
[2016-12-20] MEDS: FUROSEMIDE 40 MG TABLET PO SCH (08:18)
[2016-12-20] MEDS: CLOPIDOGREL BISULFATE 75 MG TABLET PO SCH (08:18)
[2016-12-20] MEDS: DOCUSATE SODIUM 100 MG CAPSULE PO SCH (08:19)
[2016-12-20] MEDS: POTASSIUM CHLORIDE 20 MEQ TAB.PRT.SR PO SCH (08:19)
[2016-12-20] MEDS: ISOSORBIDE MONONITRATE 60 MG TAB.SR PO SCH (08:19)
--- NOTE | 2016-12-20 13:25 | OP ---
Cesar KNUTSON : 1940 [id number] DATE OF PROCEDURE: December 18, 2016 PREOPERATIVE DIAGNOSES: Left shoulder osteoarthritis and biceps tendinitis. POSTOPERATIVE DIAGNOSES: Left shoulder osteoarthritis and biceps tendinitis. PROCEDURE: LEFT TOTAL SHOULDER ARTHROPLASTY AND BICEPS TENODESIS. SURGEON: Bennett Palomo M.D. FIRE CONTROL SYSTEM INSTALLER: 1. Diomedes Ely P.A.-C. 2. Zoila Vazquez ANESTHESIA: The patient had a general anesthesia along with a left interscalene nerve block and catheter for postoperative pain relief. FINDINGS: A suspected the patient had an intact rotator cuff. He had a DJO [place] total shoulder implanted. This was a PressFit size 10 humeral stem, a cemented a size 50 mm glenoid with a 50 mm concentric head with a standard neck. The glenoid was cemented in place. CONDITION: The patient was extubated with stable vital signs and transferred to the PACU. COMPLICATIONS: None. INTRAVENOUS FLUIDS: 1200 mL of Lactated Ringer's. URINE OUTPUT: 150 mL ESTIMATED BLOOD LOSS: 250 mL SPECIMENS: N/A TOURNIQUET TIME: N/A IMPLANTS: DJO implants. DRAINS: N/A PLAN: The patient will be nonweightbearing on the left upper extremity in a sling at all times. [place] for pain control along with morphine. Clindamycin for 24 hours after surgery. The patient will be on aspirin for DVT prophylaxis along with Plavix to be restarted on postoperative day number two. INDICATIONS: The patient is a 76-year-old male who has known osteoarthritis of his left shoulder. This pain has gotten to the point where nonoperative treatment options has not been adequate to treat his pain. The patient and I have discussed his options. He has been considering having a shoulder replacement. In fact he has had one on his right, unfortunately after this was placed he did have a cardiac event. Since that time the patient has been seen by his warehouse operator who recently did a catheterization. He is doing quite well from this. Postoperatively the patient testing [place] or Dilaudid would be okay for pain control since he has an oxycodone sensitivity. Clindamycin for perioperative antibiotics. He and I spoke about the risks involved with the surgery. Because of his history of coronary artery disease he is at higher risk for a cardiac event, stroke or other complication such as a hematoma since he is on Plavix. This is being held for the surgery itself. I told him that he is at a higher risk for a wound problem. However, I think that he would be a good candidate and I think this would help increase his range of motion and decreases pain. After a lengthy description regarding the risks involved as well as the possible benefits. The patient and I decided to proceed with surgery. PROCEDURE DESCRIPTION: Prior to taking the patient to the operating room, I signed and updated the History and Physical and confirmed with the patient that there were no changes. I signed the patient's left shoulder with my initials and the word "yes." I reviewed the consent with the patient and we agreed that the left side was the correct side and the proposed procedure matched the consent form. After again reviewing the risks and benefits of surgery, the patient agreed she was ready to proceed. The patient then spoke to the anesthesia team. After reviewing the risks and benefits of a regional block, the patient agreed to have one and a left interscalene block and catheter was placed without difficulty and the patient was ready to enter the OR. At this point the patient was brought from the preoperative area to the operating suite where the patient was placed on the OR bed and was placed asleep without difficulty. The patient was then intubated without difficulty or complications. The patient was then placed in the beach chair position. The hips were flexed to 45 degrees and the knees were flexed to 45 degrees. Plastic goggles were used to cover her eyes and the head gear was placed securing her head to the bed. The patient was positioned so that a safety belt was secured and the patient had a black knee bump under the knees. The patient had bilateral SCDs on each foot for intra-operative DVT prophylaxis. The patient's head was positioned in a neutral position. At this point the bed was turned 45 degrees. The C-arm was brought in and I confirmed that we could obtain a [place] view. After this was checked, a Betadine scrub, paint and chlorhexidine prep was used to prep the left upper extremity. At this point a final time-out was performed. We confirmed that the patient's correct images were brought up on the view box. This included xrays of the left shoulder and a CT scan demonstrating the version of the glenoid and bony landmarks. In this final time-out we confirmed that the left side was the correct side that our procedure was a left total shoulder arthroplasty with a long head of the biceps tendoesis and antibiotics 600 mg of clindamycin. Almost ready to start the surgery, the incision was drawn with a sterile marker. I measured a 10cm line starting just proximal and medial to the coracoid process extending to the mid-shaft of the humerus in the delto-pectoral interval. An Ioban was placed above and below the axilla isolating it from the operative field. A #10 blade was now used to incise the skin. Coram cautery was used to gain good hemostasis through the subcutaneous fat and 2 Gelpi retractors were placed. An Army-Kirkland was placed proximally. A Schnidt was used to dissect to identify the cephalic vein. It was brought medially as the deltoid laterally was freed up. A Hutson deltoid retractor was then placed. Anterior bursal tissue was removed exposing the long head of the biceps. It was then tenodesed to the upper border of the pec tendon by its insertion on the humerus with a #2 fiberwire. At this point the rotator interval was opened with Coram cautery. The coracohumeral ligament was not transected. A small, sharp Iftikhar was placed into the joint and the anterior capsule was then exposed. A tag suture was then placed in the superior border of the capsule and the superior portion of the subscapularis. I then used my finger to feel the anterior border of the subscapularis palpating the axillary nerve as well as the axillary artery more medial and inferior. Once this was identified with my traction suture on the upper border of the subscapularis, a thin lesser tuberosity osteotomy was performed exposing the humeral head. With the arm in adduction, and ER the humeral head was dislocated. This was performed with the arm and elbow in adduction and with gentle external rotation which allowed for dislocation of the humeral head. Once the humeral head was dislocated, I used a large rongeur to clean off humeral head osteophytes. I then used the DJO guide and performed my humeral head cut with 30 degrees of retroversion. With this completed, I used a canal finder and did hand reamings up to 10mm. I then placed a 6mm, 8mm, and 10mm broach and left this in place before moving to the glenoid. Now with the humerus prepared, I turned my attention to the glenoid. I then palpated the axillary nerve one more time anterior to my subscapularis and capsule. I then placed a blunt posterior [place] retractor posteriorly, a small sharp Hohmann retractor superiorly, and a Cobra anteriorly exposing the glenoid. The anterior labrum was removed and the glenoid was exposed. Once this was performed, I identified the center of the glenoid and used the plastic glenoid template to estimate my size. I then used the starter drill for my agricultural pilot hole into the center of the glenoid. Next, I used the larger drill for the center peg. Next, I used the correct reamer to ream away the remaining cartilage on the glenoid. With a stable subchondral surface, I drilled the 3 glenoid holes sequentially and then placed a glenoid trial which was flush on the glenoid. We then prepared one batch of medium viscosity cement and cemented in the three pegs. I then waited for the cement to harden and then placed a plastic Sohail into the joint protecting the glenoid as I re-dislocated the humerus anteriorly. Back to the humerus, I placed my trial head and trialed the implant. There was good mobility in the joint and no signs of anterior or posterior dislocation. At this point I asked for the humeral implants to be opened. I used a 2.5mm drill bit to prepare bone tunnels for fibertape sutures that would secure my lesser tuberosity osteotomy. Once these 4 bone tunnels were drilled, I assembled the implant together on the back table myself. These fibertapes would be placed around the implant and then through the subscapularis for our repair at the end of the surgey. The joint was then irrigated taking care to look for any loose bodies or loose cement pieces. The humeral implant was then press fit into the humeral canal and a free needle was used to pass the fibertapes posterior to anterior. The lesser tuberosity osteotomy was tied down and then I irrigated the wound. Once this was performed I took the arm through a [id number]. I could easily externally rotate the arm to 30 degrees without putting tension on the subscapularis and could forward flex to 160 degrees. I checked for good hemostasis and then irrigated the wound once again. I then closed the rotator interval with a #2 fiberwire. The deltopectoral interval was closed with non-absorbable Ethibond sutures to michael the interval for any possible future revision surgeries. This was followed by 0 Vicryl, interrupted 2-0 Vicryl followed by a running Monocryl suture. A DSD was applied. The team confirmed that all needle and sponge counts were correct. The patient was placed in a shoulder immobilizer and awoken without difficulty and transferred to the recovery room. In the recovery room, the patient neurovascularly was grossly intact. The patient will be discharged to the floor. We will give her antibiotics for the next 24 hours. For DVT prophylaxis she will have on SCD's and TEDS on bilateral lower extremities and will encourage the patient to participate in early ambulation. We will hold his Plavix until postoperative day number two, however restart his aspirin on postoperative day number one. In the recovery room the anesthesia team felt that it would be best to get an EKG just to document to make sure that he is not having any coronary events from this procedure. Job [id number] cc: Kimberly Brower
--- NOTE | 2016-12-24 09:51 | DS ---
Cesar KNUTSON [id number] : 1940 DATE OF ADMISSION: December 18, 2016 DATE OF DISCHARGE: December 20, 2016 HOSPITAL PROCEDURE: Left total shoulder arthroplasty and biceps tenodesis. SURGEON: Bennett Palomo M.D. HOSPITAL COURSE: The patient is a 76-year-old male with end-stage osteoarthritis. The patient had a reverse shoulder on the other side in [place] and comes today for further evaluation and treatment with a left total shoulder arthroplasty. The patient was on Plavix at baseline. This was held prior to the surgery. After his previous shoulder arthroplasty he did have a heart attack. The patient had a preoperative as well as postoperative EKG. Throughout the case the patient was stable. He had a well-placed left total shoulder without complication. On postoperative day number one the patient had a fairly good pain control. He was able to get up. The Decker catheter was removed and the patient was able to ambulate with assistance. He did have increased pain and for this reason he started taking oral pain medicine and by the morning of postoperative day number two he was ready to be discharged home. He was given a prescription for oxycodone for pain control. He finished 24 hours of antibiotics and had only taken his Plavix for DVT prophylaxis. We will plan for the patient to follow up in our office in 10 to 14 days for follow up. I attempted to answer all of his questions prior to discharge. His dressing was changed. He has a fibrin mesh bandage on his left shoulder. Job [id number] cc: [facility].
== END 2016-12-20 11:12 | disposition home or self-care (01) | DRG 483 ==
LOC: OR 05:32 → MS 13:23
PROVIDERS: ADMIT Orthopaedic Surgery; ATTEND Orthopaedic Surgery
PROC: 0RRK0JZ Replacement of Left Shoulder Joint with Synthetic Substitute, Open Approach (ICD-10-PCS; principal; 2016-12-18)
DX: M25.512 Pain in left shoulder (principal); I50.22 Chronic systolic (congestive) heart failure; E66.2 Morbid (severe) obesity with alveolar hypoventilation; M75.22 Bicipital tendinitis, left shoulder; I25.10 Atherosclerotic heart disease of native coronary artery without angina pectoris; Z98.61 Coronary angioplasty status; Z87.891 Personal history of nicotine dependence; I25.2 Old myocardial infarction; I11.0 Hypertensive heart disease with heart failure; E78.5 Hyperlipidemia, unspecified; M10.9 Gout, unspecified; K21.9 Gastro-esophageal reflux disease without esophagitis; Z68.39 Body mass index [BMI] 39.0-39.9, adult; Z01.818 Encounter for other preprocedural examination; R82.99 Other abnormal findings in urine; M79.89 Other specified soft tissue disorders